=== PATIENT | female | born 1960 | race Caucasian/White ===

== ENCOUNTER 2016-06-24 11:21 | Day surgery (SDC) | payer OTHER ==
[~2016-06-24] VITALS: Ht 162.6 cm; Wt 70.6 kg
[~2016-06-24 11:21] MED LIST: ASEN10TA9 SL; LORA-441 PO; SERT20OR PO; TRAZ50TA18 PO
[2016-06-24 12:10] VITALS: Ht 162.6 cm; Wt 70.6 kg
[2016-06-24] MEDS ORDERED: LOVA40TA64 PO (12:21)
[2016-06-24] MEDS ORDERED: LISI10TA2 PO (12:21)
[2016-06-24] MEDS ORDERED: PROP20TA4 PO (12:21)
[2016-06-24] MEDS ORDERED: AMLO-147 PO (12:21)
[2016-06-24] MEDS ORDERED: ASPI-664 PO (12:21)
[2016-06-24 12:46] VITALS: BP 113/68; PULSE 66; RESP 21
[2016-06-24] MEDS ORDERED: FENTAnyl 50 MCG/ML VIAL ONE (12:50)
[2016-06-24] MEDS ORDERED: PROPOFOL 20 ML ONE ×2 (12:51→12:52)
[2016-06-24 13:10] VITALS: BP 87/51; PULSE 60; RESP 26
[2016-06-24 13:41] VITALS: BP 127/63; RESP 18
--- NOTE | 2016-06-24 13:45 | GILP ---
DATE OF PROCEDURE: NAME OF PROCEDURE: Colonoscopy. SURGEON: Jayne Clemons MD PREOPERATIVE DIAGNOSIS: Screening colonoscopy. POSTOPERATIVE DIAGNOSES 1. Colonoscopy all the way to the cecum. 2. Occasional diverticulosis of the colon. 3. Internal hemorrhoids. 4. No colon neoplasm was identified. INDICATION FOR THE PROCEDURE: Ms. Jaqueline Swanson is a 56-year-old female patient who was schedul ed for screening colonoscopy. The procedure and possible complications are well explained to the patient. The patient understood and consented to the procedure. DESCRIPTION OF PROCEDURE: Under the influence of anesthesia, the colonoscope was carefully introduc ed in the rectum, and under direct vision, it was advanced all the way to the cecum. FINDINGS: The patient had occasional diverticulosis of the colon. She also had internal hemorrhoid s. No colon neoplasm was identified. She tolerated the procedure very well, and there was no complication from the procedure. At the end of the procedure, she was awake with stable vital signs, and she was discharged home to the care of her family. IMPRESSION: 1. Colonoscopy all the way to the cecum. 2. Occasional diverticulosis of the colon. 3. Internal hemorrhoids. 4. No colon neoplasm was identified. PLAN: Next screening colonoscopy in 10 years. Dictated By: JAYNE SHAW/LETITIA Conf#: [id number] DID#: [id number]
== END 2016-06-24 14:08 | disposition home or self-care (01) ==
LOC: GIL 11:21
PROVIDERS: ATTEND Internal Medicine Gastroenterology
DX: Z12.11 Encounter for screening for malignant neoplasm of colon (principal); K57.90 Diverticulosis of intestine, part unspecified, without perforation or abscess without bleeding; K64.8 Other hemorrhoids; I10 Essential (primary) hypertension; E78.5 Hyperlipidemia, unspecified
CPT/HCPCS: 45378; J3010; Z7610